=== PATIENT | female | born 2000 | race Caucasian/White ===

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

== ENCOUNTER 2024-07-31 14:31 | Emergency (ER) | payer OTHER ==
[~2024-07-31] VITALS: Ht 152.4 cm; Wt 75.1 kg
[2024-07-31] MEDS ORDERED: ACETAMINOPHEN 325 MG TAB PO ONE (15:00)
[2024-07-31] MEDS ORDERED: CEPHALEXIN MONOHYDRATE 500 MG CAP PO ONE (15:00)
[2024-07-31] MEDS ORDERED: CEPHALEXIN500 M1 PO (15:07)
[2024-07-31 15:15] VITALS: BP 116/76
== END 2024-07-31 15:15 | disposition home or self-care (01) ==
LOC: ED 14:31
DX: N61.0 Mastitis without abscess (principal); J45.909 Unspecified asthma, uncomplicated
CPT/HCPCS: 99283; A9270